=== PATIENT | female | born 1970 | race Caucasian/White ===

== ENCOUNTER 2018-05-12 16:24 | Emergency (ER) | payer MEDICAID, SELFPAY ==
[2018-05-12 16:28] VITALS: BP 122/81; PULSE 72; RESP 16; TEMP 35.9; O2SAT 98; BMI 28.3
== END 2018-05-12 18:48 | disposition left against medical advice (07) ==
PROVIDERS: Emergency Provider Emergency Medicine
DX: Z53.21 Procedure and treatment not carried out due to patient leaving prior to being seen by health care provider (principal)
CPT/HCPCS: 99281

== ENCOUNTER 2019-01-15 01:17 | Emergency (ER) | payer MEDICAID, SELFPAY ==
[2019-01-15 01:25] VITALS: BP 97/61; PULSE 73; RESP 17; TEMP 36.6; O2SAT 98; BMI 27.3
--- NOTE | 2019-01-15 01:53 | ED_ITS ---
HPI - Abdominal Pain General Chief Complaint: Abdominal Pain Stated Complaint: stomach pain when she eats/drinks/diarrhea Time Seen by Provider: 01/15/19 01:20 Source: patient Mode of arrival: Ambulatory Limitations: no limitations History of Present Illness HPI narrative: 40-year-old female smoker with history of IV drug abuse and hepatitis presents with a chief complaint of a few months of episodic lower abdominal discomfort in the setting of upwards of 1 year of diarrhea. She denies fever or chills. She denies dizziness, weakness or lightheadedness. She denies any change in diet nor recent use of antibiotics. She has had no coffee- ground emesis, hematemesis or melena. She denies international travel, exposure to bad food or ill persons. She has a primary care provider and a strickler attendant and would prefer to see them, however her daughter wanted her to come to the emergency department tonight because she was complaining of lower abdominal discomfort. This discomfort had largely resolved prior to her arrival. She denies any dysuria, frequency or urgency. She denies any vaginal bleeding or discharge MD complaint: abdominal pain Onset (ago): month(s) Pain Consistency: intermittent Location: suprapubic Severity: mild Quality: cramping Radiation: none Relieving factors: nothing Exacerbating factors: nothing Associated symptoms: diarrhea Related Data Patient : No Home Medications Medication Instructions Recorded Confirmed aripiprazole [Abilify] 15 mg PO QDAY #0 10/14/16 Allergies Allergy/AdvReac Type Severity Reaction Status Date / Time hydrocodone [HYDROCODONE] AdvReac Severe itchy rash Verified 05/12/18 16:28 Review of Systems Constitutional Constitutional: Denies chills, Denies fatigue, Denies fever(s), Denies frequent falls, Denies lethargy and Denies weakness Eyes Eyes: Denies change in vision, Denies eye discharge, Denies irritation and Denies loss of vision ENT Ears, Nose, Mouth, and Throat: Denies change in voice, Denies dizziness, Denies neck pain, Denies sore throat and Denies throat swelling Cardiovascular Cardiovascular: Denies chest pain, Denies irregular heart rhythm, Denies lightheadedness, Denies palpitations, Denies dyspnea, Denies dyspnea on exertion and Denies orthopnea Respiratory Respiratory: Denies cough, Denies dyspnea, Denies dyspnea on exertion and Denies wheezing Gastrointestinal Gastrointestinal: Reports abdominal pain, Denies change in bowel habits, Reports diarrhea, Denies nausea and Denies vomiting Genitourinary Genitourinary: Denies hematuria, Denies flank pain, Denies urinary incontinence and Denies urinary urgency Musculoskeletal Musculoskeletal: Denies back pain, Denies muscle weakness, Denies neck pain, Denies numbness and Denies tingling Integumentary/Breasts Skin/Breast: Denies pruritus, Denies erythema, Denies rash and Denies wounds Neurologic Neurologic: Denies behavioral changes, Denies confusion, Denies dizziness, Denies frequent falls, Denies loss of vision, Denies numbness, Denies tingling and Denies weakness Psychiatric Psychiatric: Denies anxiety, Denies behavioral changes, Denies confusion, Denies depression, Denies homicidal ideation and Denies suicidal ideation Endocrine Endocrine: Denies fatigue, Denies flushing and Denies palpitations Hematologic/Lymphatic Hematologic/Lymphatic: Denies easy bruising Allergic/Immunologic Allergic/Immunologic: Denies urticaria, Denies throat swelling and Denies wheezing Patient History Social History Smoking Status: Current every day smoker Substance Use Type: marijuana Exam Narrative Exam Narrative: GENERAL: [48] year old patient appears stated age. Well- nourished, well-developed patient, in mild distress. Flat affect. HEAD: Atraumatic. Normocephalic. EYES: Pupils equal round and reactive. Extraocular motions intact. No scleral icterus. No injection or drainage. ENT: Nose without bleeding, purulent drainage. Throat without erythema, ton sillar hypertrophy or exudate. Airway patent. NECK: Trachea midline. Non tender CARDIOVASCULAR: Regular rate and rhythm without murmurs, gallops, or rubs. RESPIRATORY: Clear to auscultation. Breath sounds equal bilaterally. No wheezes, rales, or rhonchi. GASTROINTESTINAL: Abdomen soft, non-tender, nondistended. EXTREMITIES: No edema or joint tenderness. BACK: Nontender without deformity or crepitance. No flank tenderness. NEURO: AOx3. SKIN: No rash or erythema of visible areas Initial Vital Signs Initial Vital Signs: Vital Signs Temperature 98 F 01/15/19 01:25 Pulse Rate 73 01/15/19 01:25 Respiratory Rate 17 01/15/19 01:25 Blood Pressure 97/61 01/15/19 01:25 Pulse Oximetry 98 01/15/19 01:25 Course Orders Ordered: Discontinued Medications Sodium Chloride (Normal Saline 0.9%) 1,000 mls @ 1,000 mls/hr IV BOLUS ONE Stop: 01/15/19 02:27 Vital Signs Vital signs: Vital Signs - 8 hr 01/15/19 01:25 Temperature 98 F Pulse Rate 73 Respiratory Rate 17 Blood Pressure 97/61 Pulse Oximetry 98 MDM - Abdominal Pain Lab Data Point of care testing: Point of Care Testing Test Results Negative Urine Dip Bedside Urine Glucose Negative Bedside Urine Bilirubin - Negative Bedside Urine Ketone - Negative Urine Specific [place] 1.010 Bedside Urine Occult Blood +/- Bedside Urine pH 6.5 Bedside Urine Protein - Negative Bedside Urine Urobilinogen - Negative Bedside Urine Nitrite - Negative Bedside Urine Leukocytes - Negative Esterase MDM Narrative Medical decision making narrative: Full workup ordered including IV, fluids and lab work. Discussed the plan with patient whom was agreeable, stated that upon receipt of labs we would perform a CT scan to evaluate her discomfort. The patient became increasingly anxious to leave stating that she would rather have her regular doctors evaluate this and that she did not need to be in the emergency department. Both myself and nursing staff attempted to convince the patient to stay, offering to contact family members and discuss our concerns. She was able to demonstrate capacity and clearly had full understanding of our desire to evaluate, potential risks of not doing so. She had her questions answered to her apparent satisfaction and elected to leave without signing the AMA form. Discharge Plan Departure Patient Disposition: Left Against Medical Advice Clinical Impression: Abdominal pain, No known health problems Discharge Date/Time: 01/15/19 02:20 Instructions: DI for Abdominal Pain-Adult Activity Restrictions/Additional Instructions: *You have been diagnosed with [acute on chronic abdominal pain with diarrhea] *What to do: * continue to take medications as directed *Follow up with your primary care provider in 2-3 days, call for an appointment. Let them know you were seen in the Emergency Department and that we ask that you be seen in follow up *Return to ER if you should have any new, worsening or concerning symptoms Prescriptions: No Action aripiprazole [Abilify] 15 MG tablet 15 mg PO QDAY Qty: 0 RF: 0 Stand Alone Forms: Against Medical Advice
--- NOTE | 2019-01-15 02:07 | PC.NURSE ---
I made one unsuccessful attempt for IV access,she told me her veins were not good due to former IV drug use.She would not allow another IV access attempt at this time,DR Patricia notified and spoke with her.She will allow a lab draw.
== END 2019-01-15 02:20 | disposition left against medical advice (07) ==
PROVIDERS: Emergency Provider Emergency Medicine
DX: R10.9 Unspecified abdominal pain (principal); R19.7 Diarrhea, unspecified
CPT/HCPCS: 81003; 81025; 99282

== ENCOUNTER 2019-05-05 22:29 | Emergency (ER) | payer MEDICAID, SELFPAY ==
[2019-05-05 22:49] VITALS: BP 112/58; PULSE 76; RESP 22; TEMP 36.6; O2SAT 97
--- NOTE | 2019-05-05 23:44 | PC.NURSE ---
Patient is laying down and her sister is sitting in the room with her.
--- NOTE | 2019-05-05 23:47 | ED_ITS ---
HPI - Psych <Corin Alberto DO - Last Filed: 05/10/19 19:05> General Chief Complaint: Psychiatric Symptoms Stated Complaint: suicidal ideation Time Seen by Provider: 05/05/19 23:27 Source: patient and family Mode of arrival: Ambulatory Limitations: no limitations History of Present Illness HPI Narrative: 48-year-old female comes to the emergency department with complaint of suicidal ideation. Patient was found in the neighbor's yd or garage digging through their stuff. She told the police that she was having thoughts of killing herself by drowning herself they were contacted they did not TERESA the patient but gave her resources for [facility] and then she ultimately returned home. Patient does have a psychiatric history of schizophrenia and has been off her medications for the last 2 months. She has had hospitalizations in the past sometimes as long as [address] abilized on her medications and this has been half helpful in the past. Patient does not feel that she needs to be hospitalized for an extended period time but does think that it might be helpful for her to have an inpatient stay to help her stabilize on medications. She has taken Abilify as well as Seroquel and her sister believes she may also have taken Zyprexa in the past. She does have a hi story of methamphetamine abuse and states that she finds this calming. She denies any alcohol use. This evening she does state that she is hearing voices and they are telling her ?very mean things and ?but so me that she does not wish to stay them out loud. She does not have intent at this moment but does continue to have suicidal thoughts. She is accompanied by her sister who is well acquainted with her past history and she feels quite comfortable with her sister. She does use tobacco. Related Data Home Medications Medication Instructions Recorded Confirmed aripiprazole [Abilify] 15 mg PO QDAY #0 10/14/16 Allergies Allergy/AdvReac Type Severity Reaction Status Date / Time hydrocodone [HYDROCODONE] AdvReac Severe itchy rash Verified 05/12/18 16:28 Review of Systems <Corin Alberto DO - Last Filed: 05/10/19 19:05> Review of Systems ROS Unobtainable: All systems reviewed & are unremarkable except as noted in HPI and below Patient History <Corin Alberto DO - Last Filed: 05/10/19 19:05> Medical History (Updated 05/06/19 @ 01:23 by Corin Alberto DO) Schizophrenia (Acute) Social History Smoking Status: Current every day smoker Smoking Status: Current every day smoker Substance Use Type: marijuana Exam <Corin Alberto DO - Last Filed: 05/10/19 19:05> Narrative Exam Narrative: GENERAL: Alert and oriented x three, patient appears fearful and anxious and is tearful at times, she also appears older than her stated age HEENT: Head normocephalic, atraumatic, EOMI, pupils reactive, face symmetric, moist mucous membranes NECK: Supple, full range of motion CARDIOVASCULAR: Regular rate and rhythm without murmurs, rubs or gallops. RESPIRATORY: Breath sounds equal bilaterally, no wheezes rales or rhonchi. ABDOMEN: Soft, nontender. Normoactive bowel sounds all 4 quadrants. No guarding or rebound, rigidity, no mass : No CVA tenderness EXTREMITIES: Normal range of motion, no clubbing or edema. Neurovascularly intact NEUROLOGICAL: Cranial nerves II through XII grossly intact. Moving all ex tremities. Normal gait. SKIN: Warm, dry, no petechiae, no rashes or lesions. PSYCH: Suicidal ideation, denies intent, positive for auditory hallucinations. Denies intent or thoughts to harm others. Initial Vital Signs Initial Vital Signs: Vital Signs Temperature 97.9 F 05/05/19 22:49 Pulse Rate 76 05/05/19 22:49 Respiratory Rate 22 05/05/19 22:49 Blood Pressure 112/58 L 05/05/19 22:49 Pulse Oximetry 97 05/05/19 22:49 <Vern Dos Santos DO - Last Filed: 05/06/19 10:29> Initial Vital Signs Initial Vital Signs: Vital Signs Temperature 97.9 F 05/05/19 22:49 Pulse Rate 76 05/05/19 22:49 Respiratory Rate 22 05/05/19 22:49 Blood Pressure 112/58 L 05/05/19 22:49 Pulse Oximetry 97 05/05/19 22:49 Course <DO Waylon Scott Last Filed: 05/10/19 19:05> Orders Ordered: Discontinued Medications Lorazepam (Ativan) 1 mg PO NOW ONE Stop: 05/06/19 10:01 Last Admin: 05/06/19 10:05 Dose: 1 mg Documented by: HALIMALE Nicotine (Nicoderm) 21 mg TOP NOW ONE Stop: 05/06/19 00:00 Last Admin: 05/06/19 00:18 Dose: 21 mg Documented by: YESENIA Quetiapine Fumarate (Seroquel) 50 mg PO NOW ONE Stop: 05/06/19 00:00 Last Admin: 05/06/19 00:18 Dose: 50 mg Documented by: YESENIA Vital Signs Vital signs: Vital Signs - 8 hr 05/06/19 06:48 05/06/19 10:22 Pulse Rate 72 70 Respiratory Rate 16 16 Blood Pressure 110/70 Blood Pressure [Left Arm] 106/66 Pulse Oximetry 98 97 <Vern Dos Santos DO - Last Filed: 05/06/19 10:29> Orders Ordered: Discontinued Medications Lorazepam (Ativan) 1 mg PO NOW ONE Stop: 05/06/19 10:01 Last Admin: 05/06/19 10:05 Dose: 1 mg Documented by: ENE Nicotine (Nicoderm) 21 mg TOP NOW ONE Stop: 05/06/19 00:00 Last Admin: 05/06/19 00:18 Dose: 21 mg Documented by: YESENIA Quetiapine Fumarate (Seroquel) 50 mg PO NOW ONE Stop: 05/06/19 00:00 Last Admin: 05/06/19 00:18 Dose: 50 mg Documented by: YESENIA Vital Signs Vital signs: Vital Signs - 8 hr 05/06/19 06:48 05/06/19 10:22 Pulse Rate 72 70 Respiratory Rate 16 16 Blood Pressure 110/70 Blood Pressure [Left Arm] 106/66 Pulse Oximetry 98 97 MDM - Psych <Corin Alberto DO - Last Filed: 05/10/19 19:05> Lab Data Attestation: I reviewed the patient's lab results. Result diagrams: 05/05/19 23:20 05/05/19 23:20 Labs: Lab Results 05/05/19 05/05/19 05/05/19 Range/Units 23:00 23:00 23:20 WBC 9.4 (4.5-11.0) X10^3/uL RBC 4.76 (4.0-5.2) X10^6/uL Hgb 14.0 (12.0-16.0) g/dL Hct 41.5 (36-46) % MCV 87.2 (80-100) fL MCH 29.4 (26-34) PG MCHC 33.7 (30-36) % RDW 14.8 (11.6-14.8) % Plt Count 268 (150-400) X10^3/uL Neut % (Auto) 66.0 (50-75) % Lymph % (Auto) 21.2 L (25-40) % [place] % (Auto) 7.9 (3-14) % Eos % (Auto) 3.6 (2-4) % Baso % (Auto) 1.3 (0-2) % Neut # (Auto) 6200 (3158-1181) /uL Lymph # (Auto) 2000 (2532-4426) /uL [place] # (Auto) 700 (0-900) /uL Eos # (Auto) 300 (0-450) /uL Baso # (Auto) 100 (0-100) /uL Sodium (137-145) mmol/L Potassium (3.4-5.1) mmol/L Chloride (98-107) mmol/L Carbon Dioxide (22-32) mmol/L BUN (7-17) mg/dL Creatinine (0.52-1.04) mg/dL Estimated GFR (>60) mL/min BUN/Creatinine Ratio (6-22) Glucose (70-100) mg/dL Calcium (8.4-10.2) mg/dL Total Bilirubin (0.2-1.3) mg/dL AST (14-36) IU/L ALT (<35) IU/L Alkaline Phosphatase (38-126) U/L Total Protein (6.3-8.2) g/dL Albumin (3.5-5.0) g/dL Globulin (1.7-4.1) g/dL Albumin/Globulin Ratio (1.0-2.8) TSH (0.47-4.68) uIU/mL Urine Test Negative (Negative) U Opiates 300ng/mL cut (Negative) Ur Oxycodone Screen (Negative) Urine Methadone Screen (Negative) Ur Barbiturates Screen (Negative) U Tricyclic Antidepress (Negative) Ur Phencyclidine Scrn (Negative) Ur Amphetamines Screen (Negative) U Methamphetamines Scrn (Negative) Ur MDMA Scrn (Ecstasy) (Negative) U Benzodiazepines Scrn (Negative) Urine Cocaine Screen (Negative) U Marijuana (THC) Screen (Negative) Ethyl Alcohol ( - 10) mg/dL C. difficile Tox (PCR) Negative for c. diff 05/05/19 05/05/19 05/06/19 Range/Units 23:20 23:20 00:58 WBC (4.5-11.0) X10^3/uL RBC (4.0-5.2) X10^6/uL Hgb (12.0-16.0) g/dL Hct (36-46) % MCV (80-100) fL MCH (26-34) PG MCHC (30-36) % RDW (11.6-14.8) % Plt Count (150-400) X10^3/uL Neut % (Auto) (50-75) % Lymph % (Auto) (25-40) % [place] % (Auto) (3-14) % Eos % (Auto) (2-4) % Baso % (Auto) (0-2) % Neut # (Auto) (9980-4160) /uL Lymph # (Auto) (9453-4364) /uL [place] # (Auto) (0-900) /uL Eos # (Auto) (0-450) /uL Baso # (Auto) (0-100) /uL Sodium 141 (137-145) mmol/L Potassium 3.8 (3.4-5.1) mmol/L Chloride 106 (98-107) mmol/L Carbon Dioxide 24 (22-32) mmol/L BUN 22 H (7-17) mg/dL Creatinine 0.88 (0.52-1.04) mg/dL Estimated GFR > 60.0 (>60) mL/min BUN/Creatinine Ratio 25.0 H (6-22) Glucose 180 H (70-100) mg/dL Calcium 9.4 (8.4-10.2) mg/dL Total Bilirubin 0.5 (0.2-1.3) mg/dL AST 36 (14-36) IU/L ALT 13 (<35) IU/L Alkaline Phosphatase 81 (38-126) U/L Total Protein 7.9 (6.3-8.2) g/dL Albumin 4.5 (3.5-5.0) g/dL Globulin 3.4 (1.7-4.1) g/dL Albumin/Globulin Ratio 1.3 (1.0-2.8) TSH 1.42 (0.47-4.68) uIU/mL Urine Test (Negative) U Opiates 300ng/mL cut Negative (Negative) Ur Oxycodone Screen Negative (Negative) Urine Methadone Screen Negative (Negative) Ur Barbiturates Screen Negative (Negative) U Tricyclic Antidepress Negative (Negative) Ur Phencyclidine Scrn Negative (Negative) Ur Amphetamines Screen Positive H (Negative) U Methamphetamines Scrn Positive H (Negative) Ur MDMA Scrn (Ecstasy) Negative (Negative) U Benzodiazepines Scrn Negative (Negative) Urine Cocaine Screen Negative (Negative) U Marijuana (THC) Screen Positive H (Negative) Ethyl Alcohol < 10 ( - 10) mg/dL C. difficile Tox (PCR) Point of Care Testing Test Results Not applicable MDM Narrative Medical decision making narrative: 48-year-old female comes in with complaint of being off her psychiatric medications for 2 months with history of schizophrenia and suicidal ideation. She does admit to recent methamphetamine use is positive on her toxicology screen. But has been continuing to have symptoms even prior to her recent methamphetamine use. CBC does not show major abnormalities, BUN is 22 with glucose of 180 and normal TSH. Does have a history of C diff and was able to provide a sample today is she has had some loose stools recently and this was negative for CDiff on PCR. Patient has been cooperative in the department. Patient is medically cleared. She did have a nicotine patch and was given a dose of Seroquel which she has taken in the past and felt might be helpful to her. Patient signed out to while awaiting possible plac ement. <Vern Dos Santos, - Last Filed: 05/06/19 10:29> Lab Data Labs: Lab Results 05/05/19 05/05/19 05/05/19 Range/Units 23:00 23:00 23:20 WBC 9.4 (4.5-11.0) X10^3/uL RBC 4.76 (4.0-5.2) X10^6/uL Hgb 14.0 (12.0-16.0) g/dL Hct 41.5 (36-46) % MCV 87.2 (80-100) fL MCH 29.4 (26-34) PG MCHC 33.7 (30-36) % RDW 14.8 (11.6-14.8) % Plt Count 268 (150-400) X10^3/uL Neut % (Auto) 66.0 (50-75) % Lymph % (Auto) 21.2 L (25-40) % [place] % (Auto) 7.9 (3-14) % Eos % (Auto) 3.6 (2-4) % Baso % (Auto) 1.3 (0-2) % Neut # (Auto) 6200 (0286-2991) /uL Lymph # (Auto) 2000 (7285-8661) /uL [place] # (Auto) 700 (0-900) /uL Eos # (Auto) 300 (0-450) /uL Baso # (Auto) 100 (0-100) /uL Sodium (137-145) mmol/L Potassium (3.4-5.1) mmol/L Chloride (98-107) mmol/L Carbon Dioxide (22-32) mmol/L BUN (7-17) mg/dL Creatinine (0.52-1.04) mg/dL Estimated GFR (>60) mL/min BUN/Creatinine Ratio (6-22) Glucose (70-100) mg/dL Calcium (8.4-10.2) mg/dL Total Bilirubin (0.2-1.3) mg/dL AST (14-36) IU/L ALT (<35) IU/L Alkaline Phosphatase (38-126) U/L Total Protein (6.3-8.2) g/dL Albumin (3.5-5.0) g/dL Globulin (1.7-4.1) g/dL Albumin/Globulin Ratio (1.0-2.8) TSH (0.47-4.68) uIU/mL Urine Test Negative (Negative) U Opiates 300ng/mL cut (Negative) Ur Oxycodone Screen (Negative) Urine Methadone Screen (Negative) Ur Barbiturates Screen (Negative) U Tricyclic Antidepress (Negative) Ur Phencyclidine Scrn (Negative) Ur Amphetamines Screen (Negative) U Methamphetamines Scrn (Negative) Ur MDMA Scrn (Ecstasy) (Negative) U Benzodiazepines Scrn (Negative) Urine Cocaine Screen (Negative) U Marijuana (THC) Screen (Negative) Ethyl Alcohol ( - 10) mg/dL C. difficile Tox (PCR) Negative for c. diff 05/05/19 05/05/19 05/06/19 Range/Units 23:20 23:20 00:58 WBC (4.5-11.0) X10^3/uL RBC (4.0-5.2) X10^6/uL Hgb (12.0-16.0) g/dL Hct (36-46) % MCV (80-100) fL MCH (26-34) PG MCHC (30-36) % RDW (11.6-14.8) % Plt Count (150-400) X10^3/uL Neut % (Auto) (50-75) % Lymph % (Auto) (25-40) % [place] % (Auto) (3-14) % Eos % (Auto) (2-4) % Baso % (Auto) (0-2) % Neut # (Auto) (3624-5372) /uL Lymph # (Auto) (6934-7251) /uL [place] # (Auto) (0-900) /uL Eos # (Auto) (0-450) /uL Baso # (Auto) (0-100) /uL Sodium 141 (137-145) mmol/L Potassium 3.8 (3.4-5.1) mmol/L Chloride 106 (98-107) mmol/L Carbon Dioxide 24 (22-32) mmol/L BUN 22 H (7-17) mg/dL Creatinine 0.88 (0.52-1.04) mg/dL Estimated GFR > 60.0 (>60) mL/min BUN/Creatinine Ratio 25.0 H (6-22) Glucose 180 H (70-100) mg/dL Calcium 9.4 (8.4-10.2) mg/dL Total Bilirubin 0.5 (0.2-1.3) mg/dL AST 36 (14-36) IU/L ALT 13 (<35) IU/L Alkaline Phosphatase 81 (38-126) U/L Total Protein 7.9 (6.3-8.2) g/dL Albumin 4.5 (3.5-5.0) g/dL Globulin 3.4 (1.7-4.1) g/dL Albumin/Globulin Ratio 1.3 (1.0-2.8) TSH 1.42 (0.47-4.68) uIU/mL Urine Test (Negative) U Opiates 300ng/mL cut Negative (Negative) Ur Oxycodone Screen Negative (Negative) Urine Methadone Screen Negative (Negative) Ur Barbiturates Screen Negative (Negative) U Tricyclic Antidepress Negative (Negative) Ur Phencyclidine Scrn Negative (Negative) Ur Amphetamines Screen Positive H (Negative) U Methamphetamines Scrn Positive H (Negative) Ur MDMA Scrn (Ecstasy) Negative (Negative) U Benzodiazepines Scrn Negative (Negative) Urine Cocaine Screen Negative (Negative) U Marijuana (THC) Screen Positive H (Negative) Ethyl Alcohol < 10 ( - 10) mg/dL C. difficile Tox (PCR) Point of Care Testing Test Results Not applicable MDM Narrative Medical decision making narrative: Dr dos santos: Received turned over from Dr alberto reviewed patient's history and physical. Patient has been calm. She is medically cleared. Was seen by social work this morning. Patient is accepted to [facility]. Patient is stable for transport. We will transport for [facility] evaluation and treatment. Discharge Plan Departure Patient Disposition: Xfer Psychiatric Hosp Clinical Impression: Suicidal ideation, Auditory hallucinations Discharge Date/Time: 05/06/19 11:16
--- NOTE | 2019-05-06 00:03 | PC.NURSE ---
PT. SPEAKING WITH DOC.
--- NOTE | 2019-05-06 00:15 | PC.NURSE ---
Family in w/ pt.
[2019-05-06] MEDS: NICOTINE 21 MG PATCH TOP (00:18)
[2019-05-06] MEDS: QUETIAPINE 25 MG TABLET 50 MG PO (00:18)
[2019-05-06 00:19] LABS: Add Manual Diff / Slide Review NO; Alanine Aminotransferase 13 IU/L (<35); Albumin 4.5 g/dL (3.5-5.0); Albumin Globulin Ratio 1.3 (1.0-2.8); Alkaline Phosphatase 81 U/L (38-126); Aspartate Aminotransferase 36 IU/L (14-36); Basophils Absolute Auto 100 /uL (0-100); Basophils Percent Auto 1.3 % (0-2); Bilirubin Total 0.5 mg/dL (0.2-1.3); Blood Urea Nitrogen 22 mg/dL (7-17); Calcium 9.4 mg/dL (8.4-10.2); Carbon Dioxide 24 mmol/L (22-32); Chloride 106 mmol/L (98-107); Eosinophils Absolute Auto 300 /uL (0-450); Eosinophils Percent Auto 3.6 % (2-4); Estimated Glomerular Filt Rate > 60.0 mL/min (>60); Ethanol (ETOH) < 10 mg/dL; Globulin 3.4 g/dL (1.7-4.1); Glucose 180 mg/dL (70-100); HEMOLYSIS 38 (0-50); Hematocrit 41.5 % (36-46); Lymphocytes Absolute Auto 2000 /uL (1100-4500); Lymphocytes Percent Auto 21.2 % (25-40); Mean Corpuscular HGB Conc 33.7 % (30-36); Mean Corpuscular Hemoglobin 29.4 PG (26-34); Mean Corpuscular Volume 87.2 fL (80-100); Monocytes Absolute Auto 700 /uL (0-900); Monocytes Percent Auto 7.9 % (3-14); Neutrophils Absolute Auto 6200 /uL (1500-7000); Platelet Count 268 X10^3/uL (150-400); Potassium 3.8 mmol/L (3.4-5.1); Red Blood Cell Count 4.76 X10^6/uL (4.0-5.2); Red Cell Distribution Width 14.8 % (11.6-14.8); Sodium 141 mmol/L (137-145); Total Protein 7.9 g/dL (6.3-8.2); White Blood Cell Count 9.4 X10^3/uL (4.5-11.0)
--- NOTE | 2019-05-06 00:33 | PC.NURSE ---
Family in W/ Pt.
[2019-05-06 00:49] LABS: Thyroid Stimulating Hormone 1.42 uIU/mL (0.47-4.68)
--- NOTE | 2019-05-06 01:01 | PC.NURSE ---
PT. Provided Urine, Family is in the room w/ Pt.
--- NOTE | 2019-05-06 01:02 | PC.NURSE ---
Sample sent to Lab.
[2019-05-06 01:13] LABS: UR Morphine/Opiate cutoff 300 Negative (Negative); Ur Creatinine 50 (Normal); Urine Amphetamines Positive (Negative); Urine Cocaine Negative (Negative); Urine Methamphetamines Positive (Negative); Urine Tetrahydrocannabinol Positive (Negative); Urine pH 5 (Normal)
[2019-05-06 01:14] LABS: Urine Barbiturates Negative (Negative); Urine Benzodiazepines Negative (Negative); Urine MDMA Negative (Negative); Urine Methadone Negative (Negative); Urine Oxycodone Negative (Negative); Urine Phencyclidine Negative (Negative); Urine Tricyclic Antidepressant Negative (Negative)
--- NOTE | 2019-05-06 01:30 | PC.NURSE ---
Family in room with Pt. Pt. is calm and cooperative.
[2019-05-06 01:41] LABS: Pregnancy Test Urine Negative (Negative)
[2019-05-06 01:44] LABS: Clostridium Difficile Tox PCR Negative for C. diff
--- NOTE | 2019-05-06 02:00 | PC.NURSE ---
Pt. appears asleep.
--- NOTE | 2019-05-06 02:15 | PC.NURSE ---
Pt. appears asleep.
--- NOTE | 2019-05-06 02:31 | PC.NURSE ---
Pt. appears asleep.
--- NOTE | 2019-05-06 02:49 | PC.NURSE ---
Pt. Appears asleep.
--- NOTE | 2019-05-06 03:00 | PC.NURSE ---
Pt. appears asleep.
--- NOTE | 2019-05-06 03:15 | PC.NURSE ---
Pt. appears asleep.
--- NOTE | 2019-05-06 03:30 | PC.NURSE ---
Sister is w/ Pt., Pt. appears asleep.
--- NOTE | 2019-05-06 03:45 | PC.NURSE ---
Pt. appears asleep.
--- NOTE | 2019-05-06 04:01 | PC.NURSE ---
Pt. Appears asleep.
[2019-05-06 06:48] VITALS: BP 106/66; PULSE 72; RESP 16; O2SAT 98
--- NOTE | 2019-05-06 07:17 | PC.NURSE ---
Pt appears asleep, vitals obtained. NAD. Awaiting call back from [facility]
--- NOTE | 2019-05-06 08:30 | PC.NURSE ---
0830 The pt is sitting up in the bed, a blanket covering her head, eating breakfast. The pt frequently peeks out from under the blanket but avoids eye contact. This GREASE AND TALLOW PUMPER will continue to monitor.
--- NOTE | 2019-05-06 08:51 | PC.NURSE ---
0851 The pt requested the door be shut, this GLOST KILN PLACER closed the door most of the way, leaving it open a few inches so it won't be locked. The window is open and this GLOST KILN PLACER is able to visualize the pt at all times and chart safety q15 min. The pt's sister is at the bedside.
--- NOTE | 2019-05-06 09:00 | PC.NURSE ---
0900 The pt appears more agitated, repeatedly telling her sister I'm fine, I want to go home, I want to leave. The sister is attempting to calm her by playing a TV show on her phone.
[2019-05-06] MEDS: LORazepam 0.5 MG TABLET 1 MG PO (10:05)
[2019-05-06 10:22] VITALS: BP 110/70; PULSE 70; RESP 16; O2SAT 97
--- NOTE | 2019-05-06 10:25 | PC.NURSE ---
Pt reports auditory hallucinations. will not tell me what the voices are saying. Denies SI at this time but reports having SI thoughts. Ativan 1mg given PO and pt tolerated well. Report given to KATHERINE Hardy at [facility]. awaiting transport
--- NOTE | 2019-05-06 11:16 | PC.NURSE ---
report given to ELENA pt transported out of ED at this time
== END 2019-05-06 11:16 ==
PROVIDERS: Emergency Medicine; Emergency Provider Emergency Medicine
DX: R45.851 Suicidal ideations (principal); R44.0 Auditory hallucinations
CPT/HCPCS: 36415; 80053; 80305; 80320; 81025; 84443; 85025; 87493; 99284

== ENCOUNTER 2019-06-05 10:00 | Emergency (ER) | payer MEDICAID, SELFPAY ==
[2019-06-05 10:05] VITALS: BP 114/73; PULSE 91; RESP 14; TEMP 35.7; O2SAT 99; BMI 28.3
--- NOTE | 2019-06-05 10:11 | ED.EXTPRO ---
HPI - Extremity Problem General Chief complaint: Skin/Abscess/Foreign Body Stated complaint: spot of MRSA/ from prev pt rt hand middle finger Time Seen by Provider: 06/05/19 10:04 Source: patient and old records reviewed Mode of arrival: Ambulatory Limitations: no limitations History of Present Illness HPI Narrative: This is a pleasant 48-year-old female who has an abscess on her 3rd finger on her right hand. She also has some swelling of her additional fingers. Patient states that this but has been there for several days it has grown in size and looks like it is about ready to drain. She thinks that is probably MRSA. She helps change bandages for another individual who had known MRSA. Patient states no fevers. She denies any significant pain. She denies any numbness tingling or weakness in her fingers or hand. She states her hand was more swollen this morning but has improved. She did have rings on the 4th and 5th fingers which were removed by nursing. She denies any other symptoms at this time. She does have a known history of schizophrenic and states that this has been much improved, my last interaction with her was when we transferred her to [facility] and she states that her medications are working well at this time. Related Data Home Medications Medication Instructions Recorded Confirmed aripiprazole [Abilify] 15 mg PO QDAY #0 10/14/16 05/21/19 Previous Rx's Medication Instructions Recorded sulfamethoxazole-trimethoprim 1 tab PO BID #14 tab 06/05/19 [Bactrim DS] Allergies Allergy/AdvReac Type Severity Reaction Status Date / Time hydrocodone [HYDROCODONE] AdvReac Severe itchy rash Verified 06/05/19 10:08 Review of Systems Review of Systems ROS Unobtainable: All systems reviewed & are unremarkable except as noted in HPI and below Patient History Medical History Schizophrenia (Acute) Social History Smoking Status: Current every day smoker Smoking Status: Current every day smoker Substance Use Type: marijuana Exam Narrative Exam Narrative: GENERAL: Alert and oriented x three, well-appearing female in mild distress. HEENT: Head normocephalic, atraumatic, EOMI, pupils reactive, face symmetric, moist mucous membranes NECK: Supple, full range of motion CARDIOVASCULAR: Regular rate and rhythm without murmurs, rubs or gallops. RESPIRATORY: Breath sounds equal bilaterally, no wheezes rales or rhonchi. ABDOMEN: Soft, nontender. Normoactive bowel sounds all 4 quadrants. No guarding or rebound, rigidity, no mass EXTREMITIES: Normal range of motion, no clubbing. Patient has a 0.75 cm area of fluctuance that appears ready to drain at any moment, there is some erythema surrounding the area that extends about a cm and patient has swelling of the 3rd digit as well as some mild to moderate swelling of the 4th and 5th digits. She did have 3 rings on the 4th and 5th digit which removed by nursing and given to the patient. She has full range of motion, cap refills less than 2 seconds. She does not have any redness or swelling extending up the arm.. Neurovascularly intact NEUROLOGICAL: Cranial nerves II through XII grossly intact. Moving all extremities SKIN: Warm, dry, no petechiae, no rashes or lesions other than noted. Initial Vital Signs Initial Vital Signs: Vital Signs Temperature 96.2 F L 06/05/19 10:05 Pulse Rate 91 H 06/05/19 10:05 Respiratory Rate 14 06/05/19 10:05 Blood Pressure 114/73 06/05/19 10:05 Pulse Oximetry 99 06/05/19 10:05 Procedures Abscess I/D I&D #1: Site: hand (3rd finger) Side (if applicable): right Sedation/analgesia: none Local Anesthetic: other anesthetic (topical lidocaine/prilocaine) Technique: incised with #11 blade Amount of fluid expressed (mL): 1 Irrigation: Yes Packing used?: none Course Orders Ordered: ED Orders 06/05/19 10:53 Wound Culture and Gram Stain Stat Discontinued Medications Diphtheria/Tetanus/Acell Pertussis (Adacel) 0.5 ml IM .ONCE ONE Stop: 06/05/19 10:11 Last Admin: 06/05/19 10:14 Dose: 0.5 ml Documented by: SYED Lidocaine/Prilocaine (Lidocaine-Prilocaine Cream) 5 gm TOP NOW ONE Stop: 06/05/19 10:11 Last Admin: 06/05/19 10:15 Dose: 5 gm Documented by: SYED Vital Signs Vital signs: Vital Signs - 8 hr 06/05/19 10:05 Temperature 96.2 F L Pulse Rate 91 H Respiratory Rate 14 Blood Pressure 114/73 Pulse Oximetry 99 MDM - Extremity (Nontraumatic) MDM Narrative Medical decision making narrative: Patient has an abscess on the dorsum of the 3rd finger. It was drained here in the department. Patient does have some swelling into the surrounding fingers so she was started on oral antibiotics. No signs of sepsis. Patient does not appear to have a severe cellulitis tracking up her arm but was asked to return if she is having worsening symptoms. Culture was sent to lab. Discharge Plan Departure Patient Disposition: Home Clinical Impression: Abscess of finger Qualifiers: Laterality: right Qualified Code(s): L02.511 - Cutaneous abscess of right hand Instructions: Incision and Drainage of a Skin Abscess Activity Restrictions/Additional Instructions: Take antibiotics until they are completely gone. Prescription was sent to [facility] in [place]. You may take ibuprofen or Tylenol if you find it helpful for pain. Use warm compresses 3 times daily for 20 minutes to the affected area. Do not wear rings or constrictive items on your fingers until your abscess has healed. Wound Care: Keep wound(s) clean and dry. Wash twice daily with soap and water only. Do not use over the counter products (alcohol or peroxide)on the wounds unless instructed by a physician, you may use a small amount of topical antibiotic twice daily to the affected area. If wound condition worsens (increased/expanding redness, developing fluid blisters, or worsening pain), either contact your doctor for an urgent re-assessment , or return to the Emergency Department. Return to the Emergency Department for any new or worsening symptoms. Return if fever greater than 100.4 Fahrenheit, increased swelling, increasing pain or worsening symptoms such as increased discharge or spreading redness, new numbness, tingling or weakness. Prescriptions: New sulfamethoxazole-trimethoprim [Bactrim DS] 800-160 mg tablet 1 tab PO BID Qty: 14 RF: 0 No Action aripiprazole [Abilify] 15 MG tablet 15 mg PO QDAY Qty: 0 RF: 0
[2019-06-05] MEDS: TET,DIPH,PERTUSS(ACELL),VAC/PF 0.5 ML SYRINGE IM (10:14)
[2019-06-05] MEDS: LIDOCAINE/PRILOCAINE 5 GM TOP (10:15)
--- NOTE | 2019-06-05 14:46 | PC.NURSE ---
arrival, fingers swollen, ring x 3 removed with soap/ rings given to pt one white in color and 2 gold colored
== END 2019-06-05 10:59 | disposition home or self-care (01) ==
PROVIDERS: Emergency Provider Emergency Medicine
DX: L02.511 Cutaneous abscess of right hand (principal); Z23 Encounter for immunization
CPT/HCPCS: 10060; 87070; 87077; 87147; 87186; 87205; 90471; 99283; 90715

== ENCOUNTER 2019-08-15 03:02 | Emergency (ER) | payer MEDICAID, SELFPAY ==
[2019-08-15 03:08] VITALS: BP 109/53; PULSE 96; RESP 15; TEMP 36.2; O2SAT 91; BMI 28.3
--- NOTE | 2019-08-15 03:11 | ED.DENTAL ---
HPI - Dental/Oral General Chief complaint: Dental/Oral Stated complaint: infected tooth/face swelling Time Seen by Provider: 08/15/19 03:02 Source: patient Mode of arrival: Ambulatory History of Present Illness HPI Narrative: 48-year-old female smoker with extensive dental history presents with a chief complaint of some left upper facial swelling and a known bad tooth over the past few days. She denies fever or chills. She denies nausea or vomiting. She is not dizzy nor weak or lightheaded. Related Data Home Medications Medication Instructions Recorded Confirmed aripiprazole [Abilify] 15 mg PO QDAY #0 10/14/16 05/21/19 Previous Rx's Medication Instructions Recorded sulfamethoxazole-trimethoprim 1 tab PO BID #14 tab 06/05/19 [Bactrim DS] ibuprofen 600 mg PO Q6H PRN #20 tab 08/15/19 penicillin V potassium 500 mg PO Q6H 10 Days #40 tab 08/15/19 Allergies Allergy/AdvReac Type Severity Reaction Status Date / Time hydrocodone [HYDROCODONE] AdvReac Severe itchy rash Verified 06/05/19 10:08 Review of Systems Constitutional Constitutional: Denies chills, Denies fatigue, Denies fever(s), Denies frequent falls, Denies lethargy and Denies weakness Eyes Eyes: Denies change in vision, Denies eye discharge, Denies irritation and Denies loss of vision ENT Ears, Nose, Mouth, and Throat: Denies change in voice, Reports dental pain, Denies dizziness, Denies neck pain, Denies sore throat and Denies throat swelling Cardiovascular Cardiovascular: Denies chest pain, Denies irregular heart rhythm, Denies lightheadedness, Denies palpitations, Denies dyspnea, Denies dyspnea on exertion and Denies orthopnea Respiratory Respiratory: Denies cough, Denies dyspnea, Denies dyspnea on exertion and Denies wheezing Gastrointestinal Gastrointestinal: Denies abdominal pain, Denies change in bowel habits, Denies diarrhea, Denies nausea and Denies vomiting Musculoskeletal Musculoskeletal: Denies neck pain and Denies numbness Integumentary/Breasts Skin/Breast: Denies pruritus, Denies erythema, Denies rash and Denies wounds Neurologic Neurologic: Denies behavioral changes, Denies confusion, Denies dizziness, Denies frequent falls, Denies loss of vision, Denies numbness and Denies weakness Psychiatric Psychiatric: Denies anxiety, Denies behavioral changes, Denies confusion, Denies depression, Denies homicidal ideation and Denies suicidal ideation Endocrine Endocrine: Denies fatigue, Denies flushing and Denies palpitations Hematologic/Lymphatic Hematologic/Lymphatic: Denies easy bruising Allergic/Immunologic Allergic/Immunologic: Denies urticaria, Denies throat swelling and Denies wheezing Patient History Medical History Schizophrenia (Acute) Social History Smoking Status: Current every day smoker Smoking Status: Current every day smoker alcohol intake frequency: holidays/special occasions only Substance Use Type: marijuana Exam Narrative Exam Narrative: GEN: AOx3 and in mild distress EYES: Pupils are equal, round, and reactive to light and accommodation. Extraoccular muscles are intact bilaterally. There is no subconjunctival hemorrhage or exudate. ENT: mild left upper facial swelling. poor widespread dentition, no obvious intraoral abscess. Patient refuses dental block. Airway patent. TMs moore B/L without effusion, redness, or bulging. No tender lymphadenopathy CHEST: Lungs are clear to auscultation bilaterally and free of wheezes, rales, or rhonchi. Heart rate is regular rhythm, there are no murmurs, clicks, rubs, or gallops. There is no chest wall tenderness. ABD: Abdomen is soft and nontender. There is no guarding or rebound. Bowel sounds are normal in all 4 quadrants. There is no mass or organomegaly. EXT: Full painless ROM of all extremities with no loss of sensation or strength. SKIN: Warm, pink, and dry. No erythema or rash Initial Vital Signs Initial Vital Signs: Vital Signs Temperature 97.1 F L 08/15/19 03:08 Pulse Rate 96 H 08/15/19 03:08 Respiratory Rate 15 08/15/19 03:08 Blood Pressure 109/53 L 08/15/19 03:08 Pulse Oximetry 91 08/15/19 03:08 Course Orders Ordered: Discontinued Medications Ibuprofen (Advil) 800 mg PO NOW ONE Stop: 08/15/19 03:10 Penicillin V Potassium (Penicillin Vk 250mg Tab Prepack) 1 bottle MISC SEEINSTR ONE Stop: 08/15/19 03:10 Vital Signs Vital signs: Vital Signs - 8 hr 08/15/19 03:08 Temperature 97.1 F L Pulse Rate 96 H Respiratory Rate 15 Blood Pressure 109/53 L Pulse Oximetry 91 Discharge Plan Departure Patient Disposition: Home Clinical Impression: Toothache, Dental caries, Dental abscess Instructions: Tooth Decay, Tooth Abscess, DI for Dental Pain Activity Restrictions/Additional Instructions: *You have been diagnosed with [dental decay with abscess] *What to do: *Take medications as directed: Antibiotic prescription sent to [facility] at your request *Follow up with your primary care provider in 2-3 days, call for an appointment. Let them know you were seen in the Emergency Department and that we ask that you be seen in follow up *Return to ER if you should have any new, worsening or concerning symptoms Prescriptions: New penicillin V potassium 500 mg tablet 500 mg PO Q6H 10 Days Qty: 40 RF: 0 ibuprofen 600 mg tablet 600 mg PO Q6H PRN (Reason: pain) Qty: 20 RF: 0 No Action aripiprazole [Abilify] 15 MG tablet 15 mg PO QDAY Qty: 0 RF: 0 sulfamethoxazole-trimethoprim [Bactrim DS] 800-160 mg tablet 1 tab PO BID Qty: 14 RF: 0
[2019-08-15] MEDS: PENICILLIN 250 MG TAB PREPACK 1 BOTTLE MISC (03:20)
[2019-08-15] MEDS: IBUPROFEN 400 MG TABLET 800 MG PO (03:20)
== END 2019-08-15 03:30 | disposition home or self-care (01) ==
PROVIDERS: Emergency Provider Emergency Medicine
DX: K04.7 Periapical abscess without sinus (principal); K02.9 Dental caries, unspecified
CPT/HCPCS: 99282; 99283

== ENCOUNTER → 2021-03-02 11:37 | Outpatient (CLI) | payer MEDICAID, SELFPAY ==
[2021-03-02 12:36] LABS: Add Manual Diff / Slide Review NO; Basophils Absolute Auto 200 /uL (0-100); Basophils Percent Auto 2.1 % (0-2); Eosinophils Absolute Auto 400 /uL (0-450); Hematocrit 37.3 % (36-46); Hemoglobin 12.5 g/dL (12.0-16.0); Lymphocytes Absolute Auto 2600 /uL (1100-4500); Lymphocytes Percent Auto 32.6 % (25-40); Mean Corpuscular HGB Conc 33.4 % (30-36); Mean Corpuscular Hemoglobin 29.7 PG (26-34); Mean Corpuscular Volume 88.9 fL (80-100); Monocytes Absolute Auto 800 /uL (0-900); Monocytes Percent Auto 10.4 % (3-14); Neutrophils Absolute Auto 4000 /uL (1500-7000); Neutrophils Percent Auto 49.9 % (50-75); Platelet Count 217 X10^3/uL (150-400); Red Cell Distribution Width 14.2 % (11.6-14.8)
[2021-03-02 12:55] LABS: Hemoglobin A1C% w Est Avg Glu 5.8 % (4.0-6.0)
[2021-03-02 13:28] LABS: Alanine Aminotransferase 11 IU/L (<35); Albumin 4.2 g/dL (3.5-5.0); Albumin Globulin Ratio 1.4 (1.0-2.8); Alkaline Phosphatase 84 U/L (38-126); Aspartate Aminotransferase 19 IU/L (14-36); BUN Creatinine Ratio 20.8 (6-22); Bilirubin Total 0.3 mg/dL (0.2-1.3); Blood Urea Nitrogen 20 mg/dL (7-17); Calcium 9.4 mg/dL (8.4-10.2); Carbon Dioxide 28 mmol/L (22-32); Chloride 107 mmol/L (98-107); Cholesterol 164 mg/dL (140-199); Estimated Glomerular Filt Rate > 60.0 mL/min (>60); Globulin 2.9 g/dL (1.7-4.1); Glucose 84 mg/dL (70-100); HDL Cholesterol 51 mg/dL (40-60); HEMOLYSIS < 15 (0-50); LDL Cholesterol Calculated 90 mg/dL (<100); Lipase 94 U/L (23-300); Potassium 4.6 mmol/L (3.4-5.1); Sodium 140 mmol/L (137-145); Total Protein 7.1 g/dL (6.3-8.2); Triglycerides 114 mg/dL (35-150)
[2021-03-02 13:57] LABS: TSH w/ Reflex to FT4 1.14 uIU/mL (0.47-4.68)
[2021-03-02 14:06] LABS: Appearance Urine UA CLEAR; Bilirubin Urine UA NEGATIVE (NEGATIVE); Color Urine UA YELLOW; Glucose Urine UA NEGATIVE (Negative); Ketones Urine UA NEGATIVE (NEGATIVE); Leukocyte Esterase Urine UA NEGATIVE (NEGATIVE); Nitrite Urine UA NEGATIVE (Negative); Occult Blood Urine UA NEGATIVE (Negative); Protein Urine UA NEGATIVE (Negative); Specific Gravity Urine UA >=1.030 (1.000-1.035); Urobilinogen Urine UA 0.2 E.U./dL (0.2); pH Urine UA 5.5 (4.5-8.0)
[2021-03-02 14:19] LABS: Bacteria Urine None Seen; Culture Indicated Urine Cult Not Indicated; RBC Urine None Seen (0-5/HPF); Urine Comments Microscopic Normal; WBC Urine None Seen (0-5/HPF)
[2021-03-15 14:36] LABS: HBsAg Screen Negative (Negative); Hepatitis A Antibody IgM Negative (Negative); Hepatitis B Core Antibody IgM Negative (Negative); Hepatitis C Antibody >11.0 s/co ratio (0.0-0.9); Hepatitis C Quant HCV Not Detected IU/mL (.)
== END ==
PROVIDERS: PCP Family Medicine; Referring Provider Family Medicine; Visit Provider Family Medicine
DX: F17.219 Nicotine dependence, cigarettes, with unspecified nicotine-induced disorders (principal); F20.9 Schizophrenia, unspecified; K75.9 Inflammatory liver disease, unspecified; R73.9 Hyperglycemia, unspecified; R10.9 Unspecified abdominal pain
CPT/HCPCS: 36415; 80053; 80061; 80074; 81001; 83036; 83690; 84443; 85025

== ENCOUNTER 2021-12-11 01:03 | Emergency (ER) | payer MEDICAID, SELFPAY ==
[2021-12-11 01:14] VITALS: BP 128/68; PULSE 108; RESP 18; TEMP 36.9; O2SAT 95; BMI 30.2
--- NOTE | 2021-12-11 01:16 | ED.GENADULT ---
HPI - General Adult General Chief complaint: Ear Stated complaint: EARACHE AND SORE THROAT (CANT TALK) Time Seen by Provider: 12/11/21 01:08 Source: patient Mode of arrival: Ambulatory Limitations: no limitations History of Present Illness HPI narrative: 51-year-old female is here for evaluation of a couple days of a sore throat, muffled voice, painful swallowing, right earache. No fevers Related Data Previous Rx's Medication Instructions Recorded peg 3350-electrolytes 236 240 ml PO Q10M #4,000 mL 10/18/21 gram-22.74 gram-6.74 gram-5.86 gram solution (Golytely) aripiprazole 20 mg tablet 20 mg PO DAILY #90 tabs 10/19/21 quetiapine 300 mg tablet 300 mg PO BEDTIME #90 tabs 10/19/21 quetiapine 50 mg tablet 50 mg PO TID #90 tabs 10/19/21 Allergies Allergy/AdvReac Type Severity Reaction Status Date / Time buprenorphine [From Suboxone] Allergy Mild Itchy Verified 08/10/21 14:52 naloxone [From Suboxone] Allergy Mild Itchy Verified 08/10/21 14:52 hydrocodone [HYDROCODONE] AdvReac Severe itchy rash Verified 08/10/21 14:52 Review of Systems Constitutional Constitutional: Reports system reviewed and no additional complaints, except as documented ENT Ears, Nose, Mouth, and Throat: Reports system reviewed and no additional complaints, except as documented Respiratory Respiratory: Reports system reviewed and no additional complaints, except as documented Integumentary/Breasts Skin/Breast: Reports system reviewed and no additional complaints, except as documented Patient History Medical History Hyperglycemia Nicotine dependence Schizophrenia Substance abuse Social History Smoking Status: Current every day smoker Tobacco: How many years used: 38 Smokeless tobacco user: other quit status: considering quitting alcohol intake: current substance use type: former substance user, marijuana, heroin and methamphetamine Smoking Status: Current every day smoker alcohol intake frequency: holidays/special occasions only Substance Use Type: marijuana Exam Initial Vital Signs Initial Vital Signs: Vital Signs Temperature 98.5 F 12/11/21 01:14 Pulse Rate 108 H 12/11/21 01:14 Respiratory Rate 18 12/11/21 01:14 Blood Pressure 128/68 12/11/21 01:14 Pulse Oximetry 95 12/11/21 01:14 Oxygen Delivery Method 12/11/21 01:14 HENMS Ears: TM's normal bilaterally Mouth: moist mucous membranes Throat: uvula midline, abnormal tonsil bilaterally hypertrophy; no erythema and no uvular edema Neck Lymphatic: No lymphadenopathy Resp Effort & Inspection: normal respiratory effort Skin General: no rashes or lesions noted Neuro General: patient alert and patient awake Extrem General: normal to inspection Course Orders Ordered: Discontinued Medications Ketorolac Tromethamine (Ketorolac 30 Mg/Ml Vial) 30 mg IM NOW ONE Stop: 12/11/21 01:17 Last Admin: 12/11/21 01:23 Dose: 30 mg Documented By: PEÑA Penicillin G Benzathine (Penicillin G Benzathine 1,200,000 Unit/2 Ml Syringe) 1,200,000 unit IM NOW ONE Stop: 12/11/21 01:17 Last Admin: 12/11/21 01:24 Dose: 1,200,000 unit Documented By: PEÑA Vital Signs Vital signs: Vital Signs - 8 hr 12/11/21 01:14 Temperature 98.5 F Pulse Rate 108 H Respiratory Rate 18 Blood Pressure 128/68 Pulse Oximetry 95 Oxygen Delivery Method Room Air Medical Decision Making MDM Narrative Medical decision making narrative: No respiratory distress. Mucous membranes moist. She does have tonsillar hypertrophy. She was given a shot of IM Bicillin and also shot of Toradol. There is no indication for IV fluids. Not dehydrated. Patient seemed upset that she was not receiving IV fluids although it does not indicated. Patient discharged with return precautions. Discharge Plan Departure Patient Disposition: Home Clinical Impression: Tonsillitis Activity Restrictions/Additional Instructions: You should start to feel improvement in the next 24-36 hours. You can drink small amounts of fluid. This can be as simple as sucking on some ice cubes or a popsicle. Return to the emergency department for any new symptoms. Prescriptions: No Action peg 3350-electrolytes [Golytely] 236-22.74-6.74 -5.86 gram recon soln 240 ml PO Q10M Qty: 4000 0RF Rx Instructions: Take as directed by Physician aripiprazole 20 mg tablet 20 mg PO DAILY Qty: 90 1RF quetiapine 300 mg tablet 300 mg PO BEDTIME Qty: 90 1RF quetiapine 50 mg tablet 50 mg PO TID Qty: 90 1RF Referrals: César Foreman MD [Primary Care Provider] - Visit Report Forms: Patient Portal/API
[2021-12-11] MEDS: KETOROLAC 30 MG/ML VIAL IM (01:23)
[2021-12-11] MEDS: PENICILLIN G BENZATHINE 1,200,000 UNIT/2 ML SYRINGE 1200000 UNIT IM (01:24)
--- NOTE | 2021-12-11 01:41 | PC.NURSE ---
pt also complains of a sore throat.
== END 2021-12-11 01:43 | disposition home or self-care (01) ==
PROVIDERS: Emergency Provider Emergency Medicine; PCP Family Medicine
DX: J03.90 Acute tonsillitis, unspecified (principal)
CPT/HCPCS: 96372; 99283; J0561; J1885

== ENCOUNTER 2022-05-21 12:52 | Emergency (ER) | payer MEDICAID, SELFPAY ==
[2022-05-21 12:55] VITALS: BP 119/78; PULSE 74; RESP 18; TEMP 36.9; O2SAT 95; BMI 20.7
--- NOTE | 2022-05-21 13:11 | PC.NURSE ---
Pt arrived via ambulance,triaged and then pushed in WC to lobby. Shortly after arrival pt wheeled herself to admitting desk,began yelling and swearing at Courtney and Fanny. I informed her that she was not to speak to hospital staff like that. Pt yelled at me that she wanted something done with her neck. i informed her that I was going to speak to the ED doctor about imaging and that I haven't seen Dr Cortez to ask her yet. Pt stated Ill just leave and go to [place]. I asked her she was going to stay which she replied Yes I returned to triage room with a patient. After finishing that triage I spoke with Dr Cortez about imaging orders. Dr Cortez ordered CT scan. Per admitting staff Courtney and Fanny the patient wheeled herself out of the hospital and amublated from there
== END 2022-05-21 13:11 | disposition left against medical advice (07) ==
PROVIDERS: Emergency Provider Emergency Medicine; PCP Family Medicine
CPT/HCPCS: 99281

== ENCOUNTER 2022-08-08 16:30 | Emergency (ER) | payer MEDICAID, SELFPAY ==
[2022-08-08 16:48] VITALS: BP 105/73; PULSE 76; RESP 16; TEMP 36.5; O2SAT 97
--- NOTE | 2022-08-08 16:49 | ED.EXTPRO ---
HPI - Extremity Problem General Chief complaint: Extremity Problem,Nontraumatic Stated complaint: wants finger wounds cleaned out, swelling Time Seen by Provider: 08/08/22 16:35 Source: patient Mode of arrival: Ambulatory History of Present Illness HPI Narrative: 51-year-old female smoker with history of schizophrenia and hyperglycemia presents with a chief complaint of some finger swelling and difficulty removing her rings. She states that she is been having trouble with her finger swelling at night for many years and wants us to remove her rings. She is been unable herself despite the use of lubrication. She is otherwise well and free of complaint. She denies dizziness, weakness or lightheadedness. She denies chest pain, shortness of breath or cough. Related Data Previous Rx's Medication Instructions Recorded peg 3350-electrolytes 236 240 ml PO Q10M #4,000 mL 10/18/21 gram-22.74 gram-6.74 gram-5.86 gram solution (Golytely) aripiprazole 20 mg tablet 20 mg PO DAILY #90 tabs 07/08/22 quetiapine 300 mg tablet 300 mg PO BEDTIME #90 tabs 07/08/22 quetiapine 50 mg tablet See Rx Instructions .Route 08/05/22 .COMPLEX #90 tabs Allergies Allergy/AdvReac Type Severity Reaction Status Date / Time buprenorphine [From Suboxone] Allergy Mild Itchy Verified 05/21/22 12:55 naloxone [From Suboxone] Allergy Mild Itchy Verified 05/21/22 12:55 codeine Allergy Verified 05/21/22 12:55 hydrocodone [HYDROCODONE] AdvReac Severe itchy rash Verified 05/21/22 12:55 Patient History Medical History Hyperglycemia Nicotine dependence Schizophrenia Substance abuse Social History Smoking Status: Current every day smoker Tobacco: How many years used: 38 Smokeless tobacco user: other quit status: considering quitting alcohol intake: current substance use type: former substance user, marijuana, heroin and methamphetamine Smoking Status: Current every day smoker alcohol intake frequency: holidays/special occasions only Substance Use Type: marijuana Exam Initial Vital Signs Initial Vital Signs: Vital Signs Temperature 97.7 F 08/08/22 16:48 Pulse Rate 76 08/08/22 16:48 Respiratory Rate 16 08/08/22 16:48 Blood Pressure 105/73 08/08/22 16:48 Pulse Oximetry 97 08/08/22 16:48 Oxygen Delivery Method Room Air 08/08/22 16:48 MDM - Extremity (Nontraumatic) MDM Narrative Medical decision making narrative: 51-year-old female presents asking for help removing rings that have been difficult for her to remove. She states that for her entire life her hands tend to swell at night and she wanted to remove her rings so she does not injure her hands. She tried at home and was unsuccessful presents here asking for assistance. They were easily removed by nursing at the bedside. No underlying damage, no wounds. Cap refill intact full sensation and no further workup needed Discharge Plan Departure Patient Disposition: Home Clinical Impression: Finger pain, left Activity Restrictions/Additional Instructions: *You have been diagnosed with [ring removal] *What to do: *Please continue to take your regular medications as directed. [ ] New medication prescriptions sent to your pharmacy: [ ] [ ] New medication written as a paper prescription [ ] No new medications given *Please follow up with your primary care provider in 2-3 days, call for an appointment. Let them know you were seen in the Emergency Department and that we ask that you be seen in follow up. We will electronically transmit a record of today's note if your PCP is in our system *If you do not have a primary care provider please contact the [facility] Resource line at [phone]. They will ask some questions about your medical history and help get you set up with a doctor in the community. *Return to Emergency Department if you should have any new, worsening or concerning symptoms, such as [fever greater than 101 F, shaking chills, worsening pain, persistent vomiting or other bothersome symptoms] Prescriptions: No Action peg 3350-electrolytes [Golytely] 236-22.74-6.74 -5.86 gram recon soln 240 ml PO Q10M Qty: 4000 0RF Rx Instructions: Take as directed by Physician aripiprazole 20 mg tablet 20 mg PO DAILY Qty: 90 1RF quetiapine 300 mg tablet 300 mg PO BEDTIME Qty: 90 1RF quetiapine 50 mg tablet See Rx Instructions .ROUTE .COMPLEX Qty: 90 0RF Dose Instruction: TAKE ONE TABLET BY MOUTH THREE TIMES DAILY Rx Instructions: TAKE ONE TABLET BY MOUTH THREE TIMES DAILY Referrals: César Foreman MD [Primary Care Provider] - Stand Alone Forms: Patient Portal/API
== END 2022-08-08 17:43 | disposition home or self-care (01) ==
PROVIDERS: Emergency Provider Emergency Medicine; PCP Family Medicine
DX: M79.645 Pain in left finger(s) (principal)
CPT/HCPCS: 99281